=== PATIENT | male | born 1965 | race Caucasian/White ===

== ENCOUNTER 2020-11-10 11:45 | Emergency (ER) | payer OTHER, SELFPAY ==
[2020-11-10] VITALS (8 sets, daily range): BP systolic 122–155; BP diastolic 66–102; PULSE 80–88; RESP 12–20; TEMP 37.3; O2SAT 98
--- NOTE | ~2020-11-10 | XR_ITS ---
EXAMINATION: XR chest 2V EXAM DATE: 11/10/2020 12:41 INDICATION: Dizziness, weakness, nausea. TECHNIQUE: Frontal and lateral projections of the chest obtained and reviewed. There is no prior lalito dy for comparison. FINDINGS: The lungs are clear. There are no pleural effusions. Cardiac silhouette is prominent but magnified on this AP technique. There is no pneumothorax suspected. Large bridging endplate osteop hytes, diffuse idiopathic skeletal hyperostosis. IMPRESSION: No acute cardiopulmonary findings. Reviewed, dictated and finalized at location A. ENGINE OPERATOR
--- NOTE | ~2020-11-10 | CT_ITS ---
EXAMINATION: CT brain wo con DATE: 11/10/2020 13:19 INDICATION: Dizziness and weakness. TECHNIQUE: Computed tomography (CT) of the head was performed without intravenous contrast. The mA wa s adjusted according to patient size. Iterative reconstruction technique was employed. The dose-lengt h product was 605.33 mGy-cm. COMPARISON: None FINDINGS: There is no intracranial hemorrhage, acute infarction, or abnormal intracranial mass lesion . The ventricles are normal in size. The paranasal sinuses are clear. The mastoid air cells are chance l. The orbits are normal. IMPRESSION: 1. Normal brain. Reviewed, dictated and finalized at location B. ER CUSHION IMPRESSION: 1. Normal brain.
--- NOTE | 2020-11-10 11:49 | ECG_ITS ---
Measurements Intervals [place] Rate: 90 P: 56 NV: 176 QRS: 7 QRSD: 102 T: 35 QT: 357 QTc: 438 Interpretive Statements SINUS RHYTHM BORDERLINE T WAVE ABNORMALITY- INFERIOR LEADS BASELINE ARTIFACT- I, III, AVR, AVL, AVF, V1-V6 BORDERLINE ECG Electronically Signed On 11-10-2020 12:59:18 GASOLINE SERVICE ATTENDANT by Adama Pearce D.O.
[2020-11-10 12:04] LABS: Basophils Percent Auto 0.4 % (0.2-1.2); Eosinophils Absolute Auto 0.1 K/mm3 (0-0.3); Eosinophils Percent Auto 0.6 % (0-4.4); Hematocrit 46.7 % (42.0-52.0); Hemoglobin 16.1 g/dL (14.0-18.0); Immature Granulocyte Absolute 0.02 K/mm3 (0.00-0.031); Immature Granulocyte Percent A 0.2 % (0-0.5); Lymphocytes Absolute Auto 2.39 K/mm3 (0.9-3.2); Lymphocytes Percent Auto 24.4 % (18.3-44.2); Mean Corpuscular HGB Conc 34.5 g/dl (32-36); Mean Corpuscular Hemoglobin 31.6 pg (26-34); Mean Corpuscular Volume 91.7 fl (80-100); Mean Platelet Volume 9.5 fl (7.4-10.4); Monocytes Absolute Auto 0.8 K/mm3 (0.1-0.6); Monocytes Percent Auto 8.2 % (2.6-8.5); Neutrophils Absolute Auto 6.5 K/mm3 (1.3-6.7); Neutrophils Percent Auto 66.2 % (45.5-73.1); Platelet Count Result 326 k/mm3 (150-375); Red Blood Count 5.09 M/mm3 (4.6-6.20); White Blood Count 9.8 K/mm3 (4.5-10.0)
--- NOTE | 2020-11-10 12:10 | ED.WEAKNESS ---
HPI - Weakness General Chief complaint: Weakness Stated complaint: weak Time Seen by Provider: 11/10/20 12:09 Source: patient Mode of arrival: ambulatory Limitations: no limitations History of Present Illness HPI Narrative: 55 years old white female presents with lightheadedness, dizziness for the last 1 week. Intermittent usually lasts for few seconds up to 1 minute then resolves. Patient report this lightheadedness gets worse with sitting down and better with standing and moving. Patient noticed ringing of the left ear 2 days ago, intermittent. Patient denies any fever, chills, nausea, vomiting, sore throat, headache, chest pain, shortness of breath, history of Covid or exposure to anybody known having Covid. Currently patient is asymptomatic. Patient denies any new medications or any [id number] medication, new physical activity or new diet Related Data Home Medications Medication Instructions Recorded Confirmed No Home Medications 11/10/20 11/10/20 Allergies Allergy/AdvReac Type Severity Reaction Status Date / Time No Known Allergies Allergy Verified 11/10/20 11:48 Review of Systems Review of Systems: Narrative: CONSTITUTIONAL: Denies fever, chills, or sweats. EYES: Denies visual changes, redness, or discharge. ENT: Denies rhinorrhea, congestion, sore throat, or otalgia. CARDIOVASCULAR: Denies chest pain, palpitations, or edema. RESPIRATORY: Denies cough or dyspnea. GASTROINTESTINAL: Denies abdominal pain, nausea, vomiting, or diarrhea. GENITOURINARY: Denies dysuria or hematuria. SKIN: Denies rash or itching. MUSCULOSKELETAL: Denies back pain, joint pain, or myalgia. NEUROLOGIC: Denies headache, numbness, or weakness. PSYCHIATRIC: Denies anxiety or depression. PMFSH Social History Social History Gender identity (if verbalized by the patient): Male Exam Narrative: Exam Narrative: General appearance: Well-developed, well-nourished Skin: Normal color Head: Normocephalic, nontraumatic Eyes: Clear conjunctiva ENT: Oropharynx normal, ears normal, nose normal Neck: Supple, nontender Chest and respiratory: Airway patent, no respiratory distress, no accessory muscle use Heart: Regular rate/rhythm Abdomen: Soft, nontender, no organomegaly, quiet bowel sounds Vascular: Normal peripheral pulses, normal capillary refill. Musculoskeletal: Normal range of motion, nontender back Neurologic: Alert and oriented ?3, PHYSICAL EDUCATION TEACHER is normal as tested, no gross motor deficit Course Course Emergency Course: Stable Vital Signs Vital signs: Vital Signs Temperature 37.3 C 11/10/20 11:56 Pulse Rate 87 11/10/20 11:56 Respiratory Rate 16 11/10/20 11:56 Blood Pressure 155/102 H 11/10/20 11:56 Pulse Oximetry 98 11/10/20 11:56 Temperature 37.3 C 11/10/20 11:56 Pulse Rate 84 11/10/20 13:12 Respiratory Rate 20 11/10/20 13:04 Blood Pressure 148/83 H 11/10/20 13:12 Pulse Oximetry 98 11/10/20 13:04 MDM - Weakness MDM Narrative Medical decision making narrative: Intermittent lightheadedness and dizziness. Labs, CT head, orthostatic blood pressure, UA ordered. Further plan to follow Differential Diagnosis Differential diagnosis: Likely dehydration and other (Orthostatic hypotension, electrolyte imbalance) Lab Data Result diagrams: 11/10/20 11:57 11/10/20 11:57 Labs: Lab Results 11/10/20 11/10/20 11/10/20 Range/Units 11:57 11:57 13:06 WBC 9.8 (4.5-10.0) K/mm3 RBC 5.09 (4.6-6.20) M/mm3 Hgb 16.1 (14.0-18.0) g/dL Hct 46.7 (42.0-52.0) % MCV 91.7 (80-100) fl MCH 31.6 (26-34) pg MCHC 34.5 (32-36) g
[2020-11-10 12:16] LABS: Alanine Aminotransferase 27 U/L (4-50); Albumin Level 4.6 g/dL (3.5-5.1); Alkaline Phosphatase 109 U/L (38-126); Anion Gap 7 mmol/L (8-16); Aspartate Amino Transferase 31 U/L (17-59); Bilirubin,Total 0.7 mg/dL (0.2-1.3); Blood Urea Nitrogen 13 mg/dL (9-20); Calcium 9.7 mg/dL (8.4-10.2); Carbon Dioxide 25 mmol/L (22-30); Chloride 104 mmol/L (98-107); Estimated CRCL calculation 95 ml/min; Estimated Glomerular Filt Rate > 60; Glucose 109 mg/dL (75-110); Potassium 4.2 mmol/L (3.4-5.0); Sodium 136 mmol/L (137-145)
[2020-11-10 13:17] LABS: Add Urine Microscopic? YES; Appearance Urine Clear (Clear); Bilirubin Urine Negative (Negative); Blood Urine Negative (Negative); Color Urine Yellow (Yellow); Glucose Urine UA Negative (Negative); Ketones Urine 1+ mg/dL (Negative); Leukocyte Esterase Ur Negative LEU/UL (Negative); Mucus Urine Rare /lpf; Nitrate Urine Negative (Negative); Protein Urine Negative (Negative); RBC Urine 0-2 /hpf (0-2); Specific Grav Ur 1.018 (1.001-1.035); Urobilinogen Urine Negative mg/dL (<2.0); WBC Urine 0-3 /hpf
== END 2020-11-10 14:45 | disposition home or self-care (01) ==
PROVIDERS: Emergency Medicine; Emergency Provider Emergency Medicine
DX: R42 Dizziness and giddiness (principal)
CPT/HCPCS: 36415; 70450; 71046; 80053; 81001; 85025; 93005; 99284

== ENCOUNTER 2020-12-13 09:35 | Outpatient (CLI) | payer OTHER, SELFPAY ==
--- NOTE | ~2020-12-13 | MR_ITS ---
EXAMINATION: MR brain/brain stem wo/w con EXAM DATE: 12/13/2020 10:38 INDICATION: Dizziness. TECHNIQUE: Magnetic resonance imaging (MRI) of the brain/brain stem obtained without contrast. Sagit ev T1, axial diffusion, gradient echo (T2*), T1, T2, FLAIR sequences obtained. Patient was then inj ected with 20 cc intravenous Multihance contrast. Axial and coronal postcontrast T1 weighted sequence s obtained. There is no prior study for comparison. FINDINGS: There are no areas of restricted diffusion to suggest acute infarction. There is no acute hemorrhage seen on the T2*, a hemosiderin sensitive sequence. No intraparenchymal brain mass. The ve ntricles are normal in size. There are no extra-axial collections. Flow voids are seen in the cereb ral arteries on the T2-weighted sequences consistent with their expected patency. The orbits are unr emarkable. Soft tissue is unremarkable. Incidental right frontal lobe developmental venous anomaly , not clinically significant finding. Otherwise, no areas of abnormal enhancement. IMPRESSION: 1. Incidental right frontal DVA, not clinically significant. 2. Otherwise normal exam. Reviewed, dictated and finalized at location B. SHOE DANCER
[2020-12-13 10:10] LABS: Estimated Glomerular Filt Rate > 60
== END 2020-12-13 09:36 | disposition home or self-care (01) ==
PROVIDERS: PCP Emergency Medicine; Visit Provider Psychiatry & Neurology Neurology
DX: R42 Dizziness and giddiness (principal); M50.00 Cervical disc disorder with myelopathy, unspecified cervical region
CPT/HCPCS: 70553; A9577

== ENCOUNTER 2020-12-19 08:36 | Outpatient (CLI) | payer OTHER, SELFPAY ==
--- NOTE | 2020-12-20 11:52 | WPDNEUROLOGY ---
Neurology EEG Report General Information Date of Study: 12/19/20 TEST eeg DIAGNOSIS dizziness CONDITION OF RECORDING awake drowsy and sleep EEG NUMBER [id number] CLINICAL HISTORY patient reported over the last couple of months he has been having dizziness though does not become unconscious recently has been started on antihypertensive medications but over the last week has not had any dizziness EEG DESCRIPTION basic resting occipital frequency consists of large amount of well-organized medium voltage 8 to 10 hertz per 2nd alpha admixed with low-voltage 15 to 18 hertz per 2nd beta. Bilateral symmetrical sleep activity seen during sleep. Non paroxysmal. Nonfocal. Nonlateralizing. IMPRESSION Normal record
== END 2020-12-19 08:37 | disposition home or self-care (01) ==
PROVIDERS: PCP Emergency Medicine; Visit Provider Psychiatry & Neurology Neurology
DX: R42 Dizziness and giddiness (principal)
CPT/HCPCS: 95816

== ENCOUNTER 2020-12-19 10:11 | Outpatient (CLI) | payer OTHER, SELFPAY ==
--- NOTE | ~2020-12-19 | XR_ITS ---
EXAMINATION: XR lumbar spine 2-3V EXAM DATE: 12/19/2020 10:32 INDICATION: Leg numbness, back pain. TECHNIQUE: Lumber spine frontal, lateral, lateral L5-S1 projections for interpretation. There is no prior study for comparison. FINDINGS: There is mild to moderate diffuse lumbar disc disease. No spondylolysis. Mild upper lumbar , moderate lower lumbar facet arthropathy. The vertebral body heights are maintained. The vertebral b odies are aligned in the AP dimension. Sacrum, sacroiliac joints, sacral arcuate lines are intact. Pa raspinal soft tissue is unremarkable. IMPRESSION: 1. Mild to moderate lumbar disc disease. 2. Moderate facet arthropathy. Reviewed, dictated and finalized at location A. ETIC GEAR CUSTODIAN
== END 2020-12-19 10:12 | disposition home or self-care (01) ==
LOC: ANHIMG 10:13
PROVIDERS: PCP Emergency Medicine; Visit Provider Emergency Medicine
DX: M51.36 Other intervertebral disc degeneration, lumbar region (principal)
CPT/HCPCS: 72100

== ENCOUNTER 2022-09-02 17:19 | Emergency (ER) | payer OTHER, SELFPAY ==
[2022-09-02] VITALS (14 sets, daily range): BP systolic 138–164; BP diastolic 79–109; PULSE 67–80; RESP 10–20; TEMP 36.8; O2SAT 97–100
--- NOTE | ~2022-09-02 | CT_ITS ---
EXAMINATION: CTA chest PE protocol DATE: 09/02/2022 19:47 INDICATION: Shortness of breath TECHNIQUE: Computed tomography angiography (CTA) of the chest was performed with 100 mL Omnipaque-350 intravenous contrast timed to evaluate the pulmonary arteries. Coronal maximum intensity projection 3D-reconstructions were created by the technologist. The dose-length product (DLP) was 856.61 mGy-cm. Automated exposure control and iterative reconstruction technique were employed. COMPARISON: None. FINDINGS: The pulmonary arteries are well-opacified. No pulmonary embolism is identified. There is a 2.3 x 1.6 cm nodule in the right lower lobe. No pleural effusion or pneumothorax. No pathologically e nlarged thoracic lymph nodes are identified. The heart size is normal. There are bridging osteophytes at multiple levels in the spine, consistent with diffuse idiopathic skeletal hyperostosis (DISH). Th ere is a 2.8 x 2.0 cm enhancing mass in liver segment II. There is also a subtle 1.1 cm enhancing mas s in liver segment VIII. IMPRESSION: 1. No pulmonary embolus identified. 2. Right lower lobe nodule concerning for primary bronchogenic carcinoma. CT-guided biopsy is recomme nded. 3. Indeterminate liver masses. Further workup would depend on results of CT-guided lung biopsy and co uld include MRI without and with contrast and/or percutaneous biopsy. Reviewed, dictated and finalized at location F. CTOR OF CURRICULUM IMPRESSION: 1. No pulmonary embolus identified. 2. Right lower lobe nodule concerning for primary bronchogenic carcinoma. CT-gu ided biopsy is recommended. 3. Indeterminate liver masses. Further workup would depend on results of CT-dharmesh ded lung biopsy and could include MRI without and with contrast and/or percutan eous biopsy.
--- NOTE | ~2022-09-02 | XR_ITS ---
XR chest 2V DATE: 09/02/2022 17:46 INDICATION: Shortness of breath, left arm tingling. TECHNIQUE: PA and lateral views COMPARISON: 11/10/2020 PA and lateral chest FINDINGS: Normal heart size. No hilar or mediastinal enlargement. Approximately 1.7 cm opacity overlying right lower lung; right lung mass lesion is not excluded. CT t horax is recommended. The lungs otherwise appear clear of infiltrate or consolidation. No pleural effusion or pulmonary vas cular congestion or pneumothorax. Diffuse idiopathic skeletal hyperostosis of the thoracic spine. IMPRESSION: Asymmetric approximately 1.7 cm opacity overlying the right lower lung on PA views on CT thorax is recommended to exclude pulmonary mass lesion Diffuse idiopathic skeletal hyperostosis of the thoracic spine Reviewed, dictated and finalized at location A. RAL GAS SHOTHOLE DRILLER IMPRESSION: Asymmetric approximately 1.7 cm opacity overlying the right lower l irais on PA views on CT thorax is recommended to exclude pulmonary mass lesion Diffuse idiopathic skeletal hyperostosis of the thoracic spine
--- NOTE | 2022-09-02 17:25 | ECG_ITS ---
Measurements Intervals [place] Rate: 76 P: 62 GA: 197 QRS: 4 QRSD: 106 T: 30 QT: 402 QTc: 454 Interpretive Statements SINUS RHYTHM BORDERLINE T WAVE ABNORMALITY- INFERIOR LEADS BORDERLINE ECG COMPARED TO ECG 11/10/2020 11:52:56 NO SIGNIFICANT CHANGES Electronically Signed On 09-02-2022 19:37:35 MUTUEL DEPARTMENT MANAGER by Adama Pearce D.O.
[2022-09-02 18:56] LABS: Basophils Absolute Auto 0.1 K/mm3 (0.0-0.1); Basophils Percent Auto 0.7 % (0.2-1.2); Eosinophils Absolute Auto 0.1 K/mm3 (0-0.3); Eosinophils Percent Auto 0.6 % (0-4.4); Hematocrit 44.1 % (42.0-52.0); Immature Granulocyte Absolute 0.03 K/mm3 (0.00-0.031); Immature Granulocyte Percent A 0.3 % (0-0.5); Lymphocytes Absolute Auto 2.17 K/mm3 (0.9-3.2); Lymphocytes Percent Auto 21.5 % (18.3-44.2); Mean Corpuscular Hemoglobin 31.1 pg (26-34); Mean Corpuscular Volume 91.3 fl (80-100); Monocytes Absolute Auto 0.9 K/mm3 (0.1-0.6); Monocytes Percent Auto 8.6 % (2.6-8.5); Neutrophils Absolute Auto 6.9 K/mm3 (1.3-6.7); Neutrophils Percent Auto 68.3 % (45.5-73.1); Platelet Count Result 307 k/mm3 (150-375); Red Blood Count 4.83 M/mm3 (4.6-6.20); Red Cell Distribution Width 12.7 % (11.5-14.5); White Blood Count 10.1 K/mm3 (4.5-10.0)
[2022-09-02 19:09] LABS: Alanine Aminotransferase 27 U/L (6-50); Albumin Level 4.3 g/dL (3.5-5.1); Alkaline Phosphatase 100 U/L (38-126); Anion Gap 12 mmol/L (8-16); Aspartate Amino Transferase 27 U/L (17-59); Bilirubin,Total 0.3 mg/dL (0.2-1.3); Blood Urea Nitrogen 13 mg/dL (9-20); Calcium 9.4 mg/dL (8.4-10.2); Carbon Dioxide 25 mmol/L (22-30); Chloride 102 mmol/L (98-107); Estimated CRCL calculation 130 ml/min; Estimated Glomerular Filt Rate > 60; Glucose 112 mg/dL (65-110); Potassium 3.9 mmol/L (3.4-5.0); Sodium 139 mmol/L (137-145)
--- NOTE | 2022-09-02 19:31 | ED.SOB ---
HPI - SOB/Dyspnea General Chief Complaint: Shortness of Breath/Dyspnea Stated Complaint: sob Time Seen by Provider: 09/02/22 19:01 History of Present Illness HPI Narrative: This is a 57-year-old male with recently discovered right pulmonary mass, who presents to the emergency department complaining of intermittent near syncopal episodes. Patient states several weeks ago he started having episodes of shortness of breath associated with left arm and neck pain, exacerbated by physical exertion. He states he was evaluated at an outside hospital with an echo and cardiac ultrasound and inpatient monitoring that was unremarkable. He states 3 days ago he was evaluated at an outside hospital and states he was evaluated for pulmonary embolism and states he this was negative without a mass in the right lung was found. He states he is followed up with his primary care doctor with plan for PET scan. Today he had a similar episode of shortness of breath with arm and neck pain. He denies current pain now. Related Data Home Medications Medication Instructions Recorded Confirmed No Home Medications 11/10/20 11/10/20 Allergies Allergy/AdvReac Type Severity Reaction Status Date / Time No Known Allergies Allergy Verified 11/10/20 11:48 Review of Systems Review of Systems: CONSTITUTIONAL: Intermittent chills, fatigue denies fever, or sweats. EYES: Denies visual changes, redness, or discharge. ENT: Denies rhinorrhea, congestion, sore throat, or otalgia. CARDIOVASCULAR: Intermittent chest pain denies chest pain, palpitations, or edema. RESPIRATORY: Intermittent dyspnea denies cough GASTROINTESTINAL: Denies abdominal pain, nausea, vomiting, or diarrhea. GENITOURINARY: Denies dysuria or hematuria. SKIN: Denies rash or itching. MUSCULOSKELETAL: Denies back pain, joint pain, or myalgia. NEUROLOGIC: Denies headache, numbness, dizziness, or weakness. PSYCHIATRIC: Denies anxiety or depression. PMFSH Social History Social History Gender identity (if verbalized by the patient): Male Exam Narrative: GENERAL: Well-developed, well-nourished, and in no acute distress. HEAD: Normocephalic, atraumatic. EYES: PERRLA and EOMI. ENT: Nares clear, no rhinorrhea or epistaxis. Mucous membranes moist. Oropharynx without tonsillar hypertrophy exudate or other lesions. NECK: Supple. No adenopathy or masses. No carotid bruits or JVD CHEST: Clear to auscultation. No respiratory distress. No wheezes rales or rhonchi HEART: Regular rate and rhythm. No murmur heard. Normal peripheral pulses. ABDOMEN: Soft, nontender, nondistended, normal active bowel sounds. EXTREMITIES: Normal range of motion. No edema. SKIN: Warm, dry, no rash. NEURO: No focal deficits. Alert and oriented x3. PSYCH: Normal mood and affect. Course Course Emergency Course: 22:55 - Troponins negative x2. CT not concerning for PE and demonstrates mass concerning for malignancy. Labs otherwise unremarkable. Discussed findings with the patient with recommendations to continue outpatient work-up for malignancy. Patient voiced understanding and is comfortable with plan. All questions answered to his satisfaction. Vital Signs Vital signs: Vital Signs Temperature 98.3 F 09/02/22 17:30 Pulse Rate 80 09/02/22 17:30 Respiratory Rate 18 09/02/22 17:30 Blood Pressure 140/79 09/02/22 17:30 Pulse Oximetry 97 09/02/22 17:30 Oxygen Delivery Room Air 09/02/22 17:30 Temperature 98.3 F 09/02/22 17:30 Pulse Rate 69 09/02/22 20:45 Respiratory Rate 14 09/02/22 20:45 Blood Pressure 138/86 09/02/22 20:45 Pulse Oximetry 98 09/02/22 21:20 Oxygen Delivery Room Air 09/02/22 21:20 MDM - SOB/Dyspnea MDM Narrative Medical decision making narrative: Plan: Labs, imaging, EKG, troponin, reassess Differential Diagnosis Differential diagnosis: Likely other (Malignancy, PE, ACS, arrhythmia, metabolic abnorm
[2022-09-02 20:26] LABS: Troponin I < 0.012 ng/mL (0.000-0.034)
[2022-09-02 22:46] LABS: Troponin I < 0.012 ng/mL (0.000-0.034)
== END 2022-09-02 23:53 | disposition home or self-care (01) ==
PROVIDERS: Emergency Medicine; Emergency Provider Preventive Medicine Aerospace Medicine; PCP Emergency Medicine
DX: R55 Syncope and collapse (principal); R91.8 Other nonspecific abnormal finding of lung field; R94.31 Abnormal electrocardiogram [ECG] [EKG]
CPT/HCPCS: 36415; 71046; 71275; 80053; 84484; 85025; 93005; 99284; Q9967

== ENCOUNTER 2022-09-13 16:29 | Emergency (ER) | payer OTHER, SELFPAY ==
--- NOTE | ~2022-09-13 | XR_ITS ---
EXAMINATION: XR ribs LT 2V w CXR 2V DATE: 09/13/2022 18:16 INDICATION: Spontaneous left rib pain TECHNIQUE: PA and lateral views of the chest and 3 views of the left ribs were obtained. COMPARISON: Chest CT dated 09/02/2022 FINDINGS: No rib fractures identified. The previously noted 2.3 cm right lower lobe nodule can be seen in the r ight lower lung zone. No other airspace opacities, pulmonary edema, pleural effusion or pneumothorax. Cardiomediastinal silhouette is normal. IMPRESSION: 1. No rib fracture or acute cardiopulmonary disease. 2. Right lower lobe nodule measuring 2.[address] which is concerning for malignancy. Reviewed, dictated and finalized at location A. ECTOR BALL POINTS
--- NOTE | ~2022-09-13 | CT_ITS ---
EXAMINATION: CTA chest PE protocol DATE: 09/13/2022 23:46 INDICATION: Left chest pain, dyspnea. Elevated d-dimer. TECHNIQUE: Computed tomography angiography (CTA) of the chest was performed with 100 mL Omnipaque-350 intravenous contrast timed to evaluate the pulmonary arteries. Coronal maximum intensity projection 3D-reconstructions were created by the technologist. Automated exposure control and iterative reconst ruction technique were employed. Exam dose: 874.96 mGy-cm total exam DLP. COMPARISON: 09/02/2022 CTA chest FINDINGS: There is diagnostic contrast enhancement of the pulmonary arteries and no evidence of pulmo nary embolism. No thoracic aortic aneurysm or dissection. Heart size is normal. No pericardial or pleural effusion. No hilar or mediastinal mass lesion or lymphadenopathy. 1.7 x 2.2 cm right lower lobe lung mass, suspicious for bronchogenic carcinoma. The lungs are otherwise clear of infiltrate or consolidation or mass lesion. At least several hepatic enhancing masses are noted, largest in the lateral segment left hepatic lobe . Hepatic metastases are not excluded. Small sliding hiatal hernia. Normal morphology of the adrenal glands. Diffuse idiopathic skeletal hyperostosis of the thoracic and lumbar spine. No suspicious osteolytic o r osteoblastic lesions are noted. IMPRESSION: No evidence of pulmonary embolism 2.2 cm right lower lobe lung mass, suspicious for bronchogenic carcinoma Several hepatic masses, suggesting possible hepatic metastases Reviewed, dictated and finalized at Location A. Reviewed, dictated and finalized at location A. INSTALLER
--- NOTE | ~2022-09-13 | CT_ITS ---
EXAMINATION: CT brain wo con DATE: 09/13/2022 23:46 INDICATION: Dizziness TECHNIQUE: Computed tomographic angiography (CTA) of the head was performed without and with 100 mL O mnipaque-350 intravenous contrast. Exam dose: 605.33 mGy-cm total exam DLP. Volume-rendered and ma ximum intensity projection 3D reconstructions of the intracranial arteries were created by the techno logist on a separate workstation. COMPARISON: None. FINDINGS: Mild cerebral atherosclerotic calcification. No intracranial mass lesion or hemorrhage or c erebrovascular accident. No midline shift or mass effect. Normal ventricular size. No subdural or epi dural hematoma. Orbital contents are unremarkable. Included paranasal sinuses and mastoid air cells are unremarkable. No fracture or bone destruction of the cranial vault. IMPRESSION: Cerebral atherosclerosis No acute intracranial finding Reviewed, dictated and finalized at Location A. Reviewed, dictated and finalized at location A. R WATER ASSISTANT
[2022-09-13 17:18] VITALS: BP 123/72; PULSE 70; RESP 18; TEMP 36.7; O2SAT 98
--- NOTE | 2022-09-13 17:22 | ECG_ITS ---
Measurements Intervals [place] Rate: 68 P: 42 NM: 207 QRS: 22 QRSD: 103 T: 43 QT: 396 QTc: 423 Interpretive Statements SINUS RHYTHM NORMAL ECG COMPARED TO ECG 09/02/2022 17:28:14 NO SIGNIFICANT CHANGES Electronically Signed On 09-13-2022 22:23:42 BALL SORTER by Adama Pearce D.O.
[2022-09-13 18:01] LABS: Basophils Absolute Auto 0.1 K/mm3 (0.0-0.1); Basophils Percent Auto 0.7 % (0.2-1.2); Eosinophils Absolute Auto 0.1 K/mm3 (0-0.3); Eosinophils Percent Auto 0.8 % (0-4.4); Hematocrit 42.8 % (42.0-52.0); Hemoglobin 14.6 g/dL (14.0-18.0); Immature Granulocyte Absolute 0.02 K/mm3 (0.00-0.031); Immature Granulocyte Percent A 0.2 % (0-0.5); Lymphocytes Absolute Auto 1.48 K/mm3 (0.9-3.2); Lymphocytes Percent Auto 15.1 % (18.3-44.2); Mean Corpuscular HGB Conc 34.1 g/dl (32-36); Mean Corpuscular Hemoglobin 30.9 pg (26-34); Mean Corpuscular Volume 90.5 fl (80-100); Mean Platelet Volume 9.3 fl (7.4-10.4); Monocytes Absolute Auto 0.6 K/mm3 (0.1-0.6); Neutrophils Absolute Auto 7.6 K/mm3 (1.3-6.7); Neutrophils Percent Auto 77.2 % (45.5-73.1); Platelet Count Result 324 k/mm3 (150-375); Red Blood Count 4.73 M/mm3 (4.6-6.20); Red Cell Distribution Width 12.4 % (11.5-14.5); White Blood Count 9.8 K/mm3 (4.5-10.0)
[2022-09-13 18:11] LABS: Alanine Aminotransferase 28 U/L (6-50); Alkaline Phosphatase 102 U/L (38-126); Anion Gap 9 mmol/L (8-16); Aspartate Amino Transferase 26 U/L (17-59); Bilirubin,Total 0.3 mg/dL (0.2-1.3); Blood Urea Nitrogen 13 mg/dL (9-20); Calcium 9.2 mg/dL (8.4-10.2); Carbon Dioxide 26 mmol/L (22-30); Chloride 103 mmol/L (98-107); Estimated CRCL calculation 112 ml/min; Estimated Glomerular Filt Rate > 60; Glucose 122 mg/dL (65-110); Lipase 80 U/L (23-300); Prothrombin Time 12.8 Seconds (11.1-14.7); Sodium 138 mmol/L (137-145)
[2022-09-13 18:12] LABS: Partial Thromboplastin Time 24.9 SECONDS (22.3-36.8)
[2022-09-13 18:25] LABS: Troponin I < 0.012 ng/mL (0.000-0.034)
--- NOTE | 2022-09-13 22:00 | PC.NURSE ---
patient states this has been ongoing. states that he has had an echo ekg carotid us ct scans of lungs and head. has been seen here and [facility]. states he is scheduled to have a halter monitor placed next week
[2022-09-13] MEDS: MECLIZINE HCL 25 MG TABLET PO (22:04)
[2022-09-13 22:21] LABS: Troponin I < 0.012 ng/mL (0.000-0.034)
--- NOTE | 2022-09-13 23:54 | PC.NURSE ---
patient remains calm while waiting for transportation to the [facility] at this time
[2022-09-14 00:13] LABS: Troponin I < 0.012 ng/mL (0.000-0.034)
--- NOTE | 2022-09-14 01:23 | ED.GENADULT ---
HPI - General Adult General Chief complaint: Unspecified Stated complaint: chest pain Time Seen by Provider: 09/13/22 21:52 Source: RN notes reviewed History of Present Illness HPI narrative: Patient presents emergency department from home for dizziness. Patient states that this evening he had been eating dinner he states that while he was eating dinner he had a brief episode of sharp stabbing left-sided chest pain that lasted for several seconds it was located over the left lateral chest and did not radiate and has had no pain since then. He states that he had gotten up at that time and felt dizzy and diaphoretic. He states that the dizziness felt like the room was spinning. He states since that time he has had residual dizziness that is worse with getting up and improved with sitting down. He states has had no chest pain since that time he denies any shortness of breath, vision changes, numbness or tingling in the extremities vomiting diarrhea or any other symptoms. He states that this is his fourth episode of dizziness over the past month that has been seen in the emergency department for previous episodes feels that this is likely vertigo. He states that they did find a mass in his lung on a previous visit he supposed be seeing pulmonary at [facility] this coming September for further evaluation Related Data Allergies Allergy/AdvReac Type Severity Reaction Status Date / Time No Known Allergies Allergy Verified 11/10/20 11:48 Review of Systems Review of Systems: Gen.: Denies fevers or chills Eyes: Denies eye pain or visual change ENT: Denies congestion Respiratory: Denies shortness of breath or cough CV: See HPI GI: Denies abdominal pain nausea, emesis or diarrhea Musculoskeletal: Denies back pain or muscle pain Neuro: See HPI Skin: Denies rash Except as documented, all other systems reviewed and negative [facility] Past Medical History Medical History (Updated 09/14/22 @ 01:28 by Jassi East DO) Patient denies significant medical history Social History Social History (Updated 09/14/22 @ 01:25 by Jassi East DO) Smoking status: Never smoker Gender identity (if verbalized by the patient): Male Exam Narrative: APPEARANCE: No acute distress, nontoxic, resting in bed HEENT: Normocephalic, atraumatic, OMM, TMs clear bilaterally EYES: PERRL, EOMI NECK: Supple, nontender, full range of motion without pain, no meningismus RESPIRATORY: No respiratory distress, clear to auscultation bilaterally with no rhonchi wheezing or rales CARDIOVASCULAR: RRR s murmur ABDOMINAL: Soft, nontender, nondistended MUSCULOSKELETAL: Moves all extremities. No clubbing, cyanosis or edema. NEURO: A and O ?3, following commands, speech normal, no facial droop,muscle strength 5 out of 5 bilateral upper and lower extremities SKIN:: Warm, dry. Normal Color PSYCHIATRIC: Normal affect/mood Course Course Emergency Course: Reviewed old record Patient states dizziness has resolved following meclizine Discussed with patient results of workup and diagnosis. Discussed need for follow-up with primary care, proper use of medication, and reasons to return to the emergency department. Patient understands and agrees to current treatment plan discussed with patient his lung mass he is seen pulmonary at [facility] for further evaluation Vital Signs Vital signs: Vital Signs Temperature 98.0 F 09/13/22 17:18 Pulse Rate 70 09/13/22 17:18 Respiratory Rate 18 09/13/22 17:18 Blood Pressure 123/72 09/13/22 17:18 Pulse Oximetry 98 09/13/22 17:18 Oxygen Delivery Room Air 09/13/22 17:18 Temperature 98.0 F 09/13/22 17:18 Pulse Rate 70 09/13/22 17:18 Respiratory Rate 18 09/13/22 17:18 Blood Pressure 123/72 09/13/22 17:18 Pulse Oximetry 98 09/13/22 17:18 Oxygen Delivery Room Air 09/13/22 17:18 Medical Decision Making MDM Narrative Medical decision making narrative: Patient's EKGs and labs are
== END 2022-09-14 01:42 | disposition home or self-care (01) ==
PROVIDERS: Emergency Medicine; Emergency Provider Emergency Medicine; PCP Emergency Medicine
DX: R42 Dizziness and giddiness (principal); R07.89 Other chest pain; R91.1 Solitary pulmonary nodule
CPT/HCPCS: 36415; 70450; 71046; 71100; 71275; 80053; 83690; 84484; 85025; 85380; 85610; 85730; 93005; 99284; A9270; Q9967

== ENCOUNTER 2022-09-14 14:27 | Emergency (ER) | payer OTHER, SELFPAY ==
--- NOTE | ~2022-09-14 | CT_ITS ---
EXAMINATION: CT cervical spine wo con DATE: 09/14/2022 15:02 INDICATION: paresthesias down LUE, neck pain TECHNIQUE: Computed tomography (CT) of the cervical spine was performed without intravenous contrast. Automated exposure control and iterative reconstruction technique were employed. The dose-length pro duct was 450.56 mGy-cm. COMPARISON: None FINDINGS: Vertebral Body Alignment: Intact. Reversal of the normal cervical lordosis centered at C3-4 Craniocervical and atlantoaxial alignment: Moderate degenerative change. Alignment intact. Osseous structures/fracture: No evidence of a lytic or blastic process in the visualized spine. No e vidence of acute fracture. Cervical soft tissues: The paraspinal soft tissues planes are maintained. Degenerative changes: Multilevel degenerative disc disease, severe at C6-7. Severe right neural florentin inal narrowing at C3-4 and C6-7. No severe central canal narrowing. IMPRESSION: No acute fracture or traumatic malalignment in the cervical spine. Reviewed, dictated and finalized at location K. RAFT CHARTER DISPATCHER
[2022-09-14 14:29] VITALS: BP 134/94; PULSE 87; RESP 18; TEMP 36.5; O2SAT 98
--- NOTE | 2022-09-14 14:51 | ED.GENADULT ---
HPI - General Adult General Chief complaint: Unspecified Stated complaint: feel weird , back injury 1/mo ago, seen yest. Time Seen by Provider: 09/14/22 14:35 History of Present Illness HPI narrative: Patient is a 57-year-old male here for evaluation of multiple medical complaints. Patient states that his main complaint is that he feels weird . He was seen here 12 hours ago for the symptoms, had labs, imaging of his head and chest and there was no acute abnormalities that were found. He was feeling improved after meclizine and was discharged home. Patient states after being discharged home he continued to feel weird , mostly complaining of neck pain and intermittent paresthesias in his left upper extremity. He tells me that the symptoms have been there for the past month, are only present when he turns his head. Denies injury to his neck, fevers or chills, history of IV drug use, weakness, chest pain or shortness of breath. He is scheduled to follow-up at [place] at the end of next month for a suspicious lung mass. Related Data Allergies Allergy/AdvReac Type Severity Reaction Status Date / Time No Known Allergies Allergy Verified 11/10/20 11:48 Review of Systems Review of Systems: Gen: Denies fevers or chills Eyes: Denies eye pain or visual change ENT: Denies congestion Respiratory: Denies shortness of breath or cough CV: Denies chest pain or palpitations GI: Denies abdominal pain nausea, emesis or diarrhea denies burning, urgency, frequency or hematuria Musculoskeletal: Reports neck pain and left upper extremity paresthesias. Denies back pain or muscle pain Neuro: Denies numbness, tingling, weakness or focal weakness Skin: Denies rash Except as documented, all other systems reviewed and negative PMFSH Past Medical History Medical History Patient denies significant medical history Social History Social History (Updated 09/14/22 @ 01:25 by Jassi East DO) Smoking status: Never smoker Gender identity (if verbalized by the patient): Male Exam Narrative: APPEARANCE: Well appearing, no pain in distress, well-nourished. Head: Normocephalic and atraumatic. EYES: PERRLA/EOMI, conjunctivae clear NOSE: No nasal drainage EARS: External ear normal in appearance THROAT: Oropharynx is clear. Mucous membranes are moist. NECK: Supple. No adenopathy, no masses. RESPIRATORY: Airway patent, respirations nonlabored. Clear to auscultation bilaterally, no rales, rhonchi, wheezing. CARDIOVASCULAR: Strong radial pulses bilaterally. Regular rate and rhythm without murmurs, rubs, or gallops. ABDOMINAL: Normoactive bowel sounds. Soft, nontender, nondistended. No rebound tenderness or guarding. MUSCULOSKELETAL: Spurling's test positive. No midline tenderness to palpation of C-spine. Extremities are warm and well-perfused. Moves all extremities well. No edema. NEURO: 5 out of 5 strength in bilateral upper extremities. Cranial nerves II through XII intact. Normal speech. No focal neurologic deficits. SKIN: Skin is warm and dry. No rashes. PSYCHIATRIC: Normal affect/mood.. Course Vital Signs Vital signs: Vital Signs Temperature 97.7 F 09/14/22 14:29 Pulse Rate 87 09/14/22 14:29 Respiratory Rate 18 09/14/22 14:29 Blood Pressure 134/94 H 09/14/22 14:29 Pulse Oximetry 98 09/14/22 14:29 Temperature 97.7 F 09/14/22 14:29 Pulse Rate 83 09/14/22 15:57 Respiratory Rate 18 09/14/22 15:57 Blood Pressure 130/87 09/14/22 15:57 Pulse Oximetry 99 09/14/22 15:57 Medical Decision Making MDM Narrative Medical decision making narrative: 57-year-old male here for numerous symptoms, most notably intermittent paresthesias down his left upper extremity that occurs with turning his head and neck pain. Of note he has been seen and evaluated in the ED numerous times for various complaints, reviewed records from yesterday including head
[2022-09-14 15:57] VITALS: BP 130/87; PULSE 83; RESP 18; O2SAT 99
== END 2022-09-14 15:57 | disposition home or self-care (01) ==
PROVIDERS: Emergency Provider Physician Assistant; PCP Emergency Medicine
DX: M48.02 Spinal stenosis, cervical region (principal)
CPT/HCPCS: 72125; 99284

== ENCOUNTER 2022-09-24 15:06 | Outpatient (CLI) | payer OTHER, SELFPAY ==
--- NOTE | ~2022-09-24 | CT_ITS ---
EXAMINATION: CT abdomen pelvis wo con DATE: 09/24/2022 15:38 INDICATION: Lung mass. Liver masses. TECHNIQUE: Computed tomography (CT) of the abdomen and pelvis was performed without intravenous contr ast. The dose-length product was 1554.19 mGy-cm. Automated exposure control and iterative reconstruct ion technique were employed. COMPARISON: CT dated 09/13/2022. FINDINGS: There is a 2.2 cm right lower lobe nodule, suspicious for bronchogenic carcinoma. Heart siz e normal. There is a 4 x 2.9 cm mass of the left hepatic lobe. No other discrete hepatic mass is seen . The spleen, pancreas, adrenal glands and kidneys are unremarkable. Gallbladder is present. Nonobstr uctive bowel pattern. Colonic diverticulosis without evidence for diverticulitis. Nonobstructive bushra l gas pattern. Normal appendix. Small fat-containing umbilical hernia. No significant vascular abnorm ality. No lymphadenopathy. IMPRESSION: 1. Right lower lobe nodule measuring 2.2 cm, concerning for bronchogenic carcinoma. Recommend follow- up percutaneous biopsy or PET/CT scan. 2: 4 cm hypodense mass of the left hepatic lobe, suspicious for metastatic disease. Reviewed, dictated and finalized at location A. HES MODEL IMPRESSION: 1. Right lower lobe nodule measuring 2.2 cm, concerning for bronchogenic carcin mayuri. Recommend follow-up percutaneous biopsy or PET/CT scan. 2: 4 cm hypodense mass of the left hepatic lobe, suspicious for metastatic dis ease.
--- NOTE | ~2022-09-24 | CT_ITS ---
EXAMINATION: CT thoracic spine wo con DATE: 09/24/2022 15:37 INDICATION: Abnormal imaging of mass in the chest TECHNIQUE: Computed tomography (CT) of the thoracic spine was performed without intravenous contrast. The dose-length product was 1679.36 mGy-cm. Automated exposure control and iterative reconstruction technique were employed. COMPARISON: None FINDINGS: There is diffuse idiopathic skeletal hyperostosis (DISH) of the thoracic spine. Vertebral b wanda heights are maintained. There is normal thoracic spondylosis. Mild dextrocurvature of the thoraci c spine. No focal lytic or blastic lesions are seen. There is a 2.3 x 2.1 cm mass in the right lower lobe posteriorly, concerning for bronchogenic carcinoma. No significant paraspinal soft tissue abnorm ality. IMPRESSION: 1. No acute abnormality of the thoracic spine. No evidence for focal lytic or blastic lesions. 2: Right lower lobe nodule measuring 2.3 cm, concerning for bronchogenic carcinoma. Reviewed, dictated and finalized at location A. R MACHINE CUTTER IMPRESSION: 1. No acute abnormality of the thoracic spine. No evidence for focal lytic or b lastic lesions. 2: Right lower lobe nodule measuring 2.3 cm, concerning for bronchogenic carci noma.
== END 2022-09-24 15:07 | disposition home or self-care (01) ==
PROVIDERS: PCP Emergency Medicine; Visit Provider Emergency Medicine
DX: R91.1 Solitary pulmonary nodule (principal); R16.0 Hepatomegaly, not elsewhere classified
CPT/HCPCS: 72128; 74176

== ENCOUNTER 2022-09-25 01:54 | Outpatient (CLI) | payer OTHER, SELFPAY ==
[2022-09-19 09:36] VITALS: BMI 39.6
--- NOTE | 2022-09-19 09:37 | PC.NURSE ---
Pre Radiology instructions Report to the [facility], at time 1030 on date 09/25/22. Procedure Time: 1100. YOU MAY BE MONITORED AT HOSPITAL FOR UP TO 4 HOURS AFTER YOUR PROCEDURE. One visitor will be allowed to accompany the patient into the hospital. The visitor will be instructed to remain with patient at all times or leave the building due to restrictions. We will allow the visitor to come back to the postoperative area when patient is ready. NO children visitors allowed at this time. You and your visitor will be asked to self-screen and do not enter if you have any COVID symptoms. A mask is OPTIONAL within the hospital. Patients are to have no food or drink 6 hours prior to procedure time Driving will be restricted after the procedure, you must have a person to drive you home. Labs will be drawn in preop area and once reviewed, you will be taken to radiology area for procedure. When the procedure is completed, you will be taken to outpatient where you will be monitored for several hours. You may have one visitor in this area. Other than holding anti-coagulants, patient may take other medication(s) as scheduled. Prior to your appointment date patients are instructed to hold anti-coagulants after discussing with ordering provider to stop. If unable to discontinue anti-coagulants please notify radiologist. No aspirin or warfarin (Coumadin) for 7 days prior to the procedure. No clopidogrel (Plavix), ticagrelor (Brilinta), prasugrel (Effient) or dabigatran (Pradaxa) for 5 days prior to the procedure. No rivaroxaban (Xarelto), apixaban (Eliquis), dipyridamole (Aggrenox or Persantine) or cilostazol (Pletal) for 2 days prior to the procedure. Medications to discontinue per physician: ASPIRIN Date to take last dose: PT TOOK LAST DOSE 09/17 Please leave all valuables, including medications, at home the day of procedure. The hospital will not accept responsibility for valuables. Wear comfortable, loose fitting clothing. Follow any additional instructions given to you from ordering provider. Telephone instructions given to PT - MACARIO JO and asked if any additional questions and then verbalized understanding. Patient advised to call scheduling provider office or registration scheduling [phone] if any additional questions.
[2022-09-25] VITALS (8 sets, daily range): BP systolic 105–118; BP diastolic 66–106; PULSE 58–79; RESP 16–18; O2SAT 95–100
--- NOTE | ~2022-09-25 | CT_ITS ---
EXAMINATION: CT biopsy lung w/imaging DATE: 09/25/2022 12:19 INDICATION: Right lower lobe mass TECHNIQUE: The procedure including the risks and benefits was discussed with the patient. Risks discu ssed included infection, approximately 1/20 risk of symptomatic hemorrhage beyond mild hemoptysis, ap proximately 1/3 risk of pneumothorax, and approximately 1/10 risk of pneumothorax severe enough to wa rrant chest tube placement. The patient understood the risks and agreed to proceed. The patient was p laced prone. The skin overlying the posterior lower right hemithorax was prepped and draped in steri le fashion. Anesthetic was administered with 1% lidocaine subcutaneously. A 19 gauge outer needle w as advanced under CT guidance to the lesion of interest. A 20 gauge core biopsy needle was then used to obtain 4 core biopsy specimens. The needle was removed and the entry site was cleaned and dressed. There were no immediate complications. The dose-length product was 168.16 mGy-cm. FINDINGS: CT images demonstrate the outer needle tip adjacent to a 2.5 cm thick-walled centrally cavi tary mass in the posterior right lower lobe. IMPRESSION: 1. Successful CT-guided biopsy of a 2.5 cm thick-walled centrally cavitary mass in the right lower lo be. Reviewed, dictated and finalized at location A. FIT DIRECTOR IMPRESSION: 1. Successful CT-guided biopsy of a 2.5 cm thick-walled centrally cavitary mass in the right lower lobe.
--- NOTE | ~2022-09-25 | XR_ITS ---
XR chest 1V portable 09/25/2022 13:13 Indication: Postbiopsy of the chest Procedure: AP portable chest Comparison: 09/25/2022 Findings: There is a right lower lobe nodule, suspicious for bronchogenic carcinoma. No pneumothorax identified. No pleural effusion. Left lung clear. Heart size normal. Impression: 1: Right lower lobe nodule, suspicious for bronchogenic carcinoma. Reviewed, dictated and finalized at location A. ING RIGGER Impression: 1: Right lower lobe nodule, suspicious for bronchogenic carcinoma.
--- NOTE | ~2022-09-25 | XR_ITS ---
XR chest 1V portable 09/25/2022 15:12 Indication: Post lung biopsy. Procedure: AP portable chest Comparison: Comparison to multiple prior studies sequentially, with oldest reviewed study dated 08/20. Findings: Heart size normal. No pneumothorax identified post biopsy. Persistent pulmonary nodule righ t mid thorax, concerning for bronchogenic carcinoma. No focal air space disease, pulmonary edema, ple ural effusion or suspected pneumothorax. Impression: 1: No evidence for pneumothorax post biopsy. 2: Stable pulmonary nodule right mid thorax, concerning for bronchogenic carcinoma. Reviewed, dictated and finalized at location A. CLING COORDINATOR Impression: 1: No evidence for pneumothorax post biopsy. 2: Stable pulmonary nodule right mid thorax, concerning for bronchogenic carcin mayuri.
--- NOTE | ~2022-09-25 | XR_ITS ---
EXAMINATION: XR chest 1V DATE: 09/25/2022 12:21 INDICATION: Status post percutaneous biopsy of a right lower lobe mass. TECHNIQUE: frontal and lateral views of the chest were obtained. COMPARISON: Chest radiograph dated 09/13/2022 FINDINGS: Again seen is a 2.5 cm right lower lobe mass. No new airspace opacities, pulmonary edema, pleural eff usion or pneumothorax. The cardiomediastinal silhouette is normal. Presternal electronic device proje cts over the superior mediastinum. IMPRESSION: 1. No pneumothorax, pleural effusion or other acute cardiopulmonary disease post percutaneous biopsy of a 2.5 cm right lower lobe mass. Reviewed, dictated and finalized at location A. APPLICATION TESTER IMPRESSION: 1. No pneumothorax, pleural effusion or other acute cardiopulmonary disease pos t percutaneous biopsy of a 2.5 cm right lower lobe mass.
--- NOTE | 2022-09-25 12:52 | SUR.PHASEII ---
DR. WHITNEY CALLED TO PLACE ORDERS; DR. CHAVEZ'D PATIENT TO HAVE ICE CHIPS.
--- NOTE | 2022-09-25 13:12 | SUR.PHASEII ---
PORTABLE CXR DONE.
--- NOTE | 2022-09-25 15:41 | SUR.PHASEII ---
DR. WHITNEY HERE TO SPEAK TO PATIENT.
== END 2022-09-25 15:55 | disposition home or self-care (01) ==
PROVIDERS: PCP Emergency Medicine; Visit Provider Radiology Diagnostic Radiology
PROC: BB24ZZZ Computerized Tomography (CT Scan) of Bilateral Lungs (ICD-10-PCS; CPT 32408; principal; 2022-09-25 11:00)
DX: R91.8 Other nonspecific abnormal finding of lung field (principal); C34.91 Malignant neoplasm of unspecified part of right bronchus or lung
CPT/HCPCS: 32408; 71045; 88305; 88313; 88342

== ENCOUNTER 2022-11-08 15:28 | Outpatient (CLI) | payer OTHER, SELFPAY ==
--- NOTE | ~2022-11-08 | MR_ITS ---
EXAMINATION: MR cervical spine wo con DATE: 11/08/2022 16:11 INDICATION: Neck pain. TECHNIQUE: Magnetic resonance imaging (MRI) of the cervical spine was performed without intravenous c ontrast. Sequences included sagittal T2-weighted FSE, sagittal T2-weighted FS FSE, sagittal T1-weight ed FSE, axial MERGE, and axial T2-weighted FSE. COMPARISON: CT cervical spine 09/14/2022 FINDINGS: There is kyphosis of cervical spine. Vertebral body heights are normal. There is mildly dec reased disc height at C3-C4 and severely decreased disc height at C6-C7. Osseous central spinal canal is developmentally small in cervical spine. There is increased T2-weighted signal intensity in the s fidel cord at C3-C4, consistent with myelomalacia. The following disc levels are specifically discuss ed: C2-C3: The disc does not extend beyond the endplate margin. There is moderate right and mild left unc overtebral joint osteoarthritis. There is mild right and moderate left facet joint osteoarthritis. Th ere is mild bilateral neural foraminal stenosis. There is mild central canal stenosis. C3-C4: The disc is bulging. There is moderate right and severe left uncovertebral joint osteoarthriti s. There is moderate bilateral facet joint osteoarthritis. There is severe bilateral neural foraminal stenosis. There is severe central canal stenosis with ventral and dorsal indentation of spinal cord and increased signal in the cord. C4-C5: The disc is bulging. There is moderate bilateral uncovertebral joint osteoarthritis. There is mild bilateral facet joint osteoarthritis. There is moderate bilateral neural foraminal stenosis. The re is mild central canal stenosis. C5-C6: The disc is bulging. There is mild bilateral uncovertebral joint osteoarthritis. There is mild right and moderate left facet joint osteoarthritis. There is mild right and moderate left neural for aminal stenosis. There is mild central canal stenosis. C6-C7: The disc is bulging. There is severe bilateral uncovertebral joint osteoarthritis. There is mi ld bilateral facet joint osteoarthritis. There is moderate right and mild left neural foraminal steno sis. There is mild central canal stenosis with ventral indentation of spinal cord. C7-T1: The disc does not extend beyond the endplate margin. There is no uncovertebral joint osteoarth ritis. There is severe bilateral facet joint osteoarthritis. There is mild bilateral neural foraminal stenosis. There is no central canal stenosis. IMPRESSION: 1. Myelomalacia at C3-C4. 2. Severe cervical spondylosis. Reviewed, dictated and finalized at location A. ERIZER TENDER
== END 2022-11-08 15:29 | disposition home or self-care (01) ==
PROVIDERS: PCP Emergency Medicine; Visit Provider Nurse Practitioner Adult Health
DX: M47.892 Other spondylosis, cervical region (principal)
CPT/HCPCS: 72141